=== PATIENT | female | born 1945 | race African-American/Black ===

== ENCOUNTER 2020-05-22 20:33 | Inpatient (IN) | payer MEDICARE, BC ==
[~2020-05-22] VITALS: Ht 160 cm; Wt 95.3 kg
[2020-05-22 22:17] LABS: CHLORIDE 108 mEq/L (98-107)
[2020-05-22 22:19] LABS: HEMATOCRIT. 39.1 % (36.0-48.0); HEMOGLOBIN. 12.8 g/dL (12.0-16.0); MEAN CORPUSCULAR HEMOGLOBIN 27.1 pg (28.0-32.0); MEAN CORPUSCULAR VOLUME 83.1 fL (81.0-99.0); MEAN PLATELET VOLUME 8.1 fl (7.4-10.4); PLATELET 202 x1000/uL (130-400); RED BLOOD CELL COUNT 4.71 mill/uL (4.2-5.4); RED CELL DISTRIBUTION WIDTH 17.9 % (11.6-14.6)
[2020-05-22 22:20] LABS: D-DIMER 0.95 mg/L FEU (<0.50); INR 1.2
[2020-05-22 22:36] LABS: PLATELET ESTIMATE NORMAL
[2020-05-22] MEDS ORDERED: PIPERACILLIN/TAZOBACTAM 3.375GM/50ML PREMIX IV ONE (23:30)
[2020-05-22] MEDS ORDERED: PIPERACILLIN/TAZ 3.375G PREMIX 50 ML IV NR (23:30)
[2020-05-23] MEDS ORDERED: ENOXAPARIN 100MG/ML SYR SUBCUT ONE
[2020-05-23] MEDS ORDERED: SODIUM CHLORIDE 0.9% 1,000 ML IV ONE
[2020-05-23 00:55] LABS: CLARITY URINE TURBID (CLEAR); COLOR URINE YELLOW (YELLOW); KETONES URINE NEGATIVE (NEGATIVE); LEUKOCYTE ESTERASE URINE 3+ (NEGATIVE); NITRITE URINE POSITIVE (NEGATIVE); OCCULT BLOOD URINE 3+ (NEGATIVE); PROTEIN URINE 3+ (NEGATIVE); SPECIFIC GRAVITY URINE 1.013 (1.005-1.030)
[2020-05-23] MEDS ORDERED: DILTIAZEM HCL 5MG/ML 5ML VIAL IV ONE (01:15)
[2020-05-23] MEDS: DILTIAZEM HCL 30MG TABLET PO SCH ×4 (06:50→18:00)
[2020-05-23] MEDS ORDERED: ONDANSETRON HCL 4MG/2ML INJ IV PRN (09:00)
[2020-05-23] MEDS ORDERED: ACETAMINOPHEN 325MG TABLET PO PRN (09:00)
[2020-05-23] MEDS ORDERED: ENOXAPARIN 40MG/0.4ML SYR SUBCUT SCH (09:00)
[2020-05-23] MEDS ORDERED: CLONIDINE 0.1MG TABLET PO PRN (09:00)
[2020-05-23] MEDS ORDERED: DIPHENHYDRAMINE 50MG/ML VIAL IV PRN (09:00)
[2020-05-23 09:44] LABS: PHOSPHORUS 2.6 mg/dL (2.5-4.9)
[2020-05-23] MEDS ORDERED: ENOXAPARIN 30MG/0.3ML SYR SUBCUT SCH (10:00)
[2020-05-23] MEDS ORDERED: PIPERACILLIN/TAZOBACTAM 3.375 G in DEXT 5% WATER 100 ML IV SCH (10:00)
[2020-05-23] MEDS: PIPERACILLIN/TAZ 3.375G PREMIX 50 ML IV SCH ×2 (10:48→18:30)
[2020-05-23] MEDS ORDERED: DILTIAZEM HCL 5MG/ML 5ML VIAL IV PRN (13:00)
[2020-05-23] MEDS: MIDODRINE HCL 5MG TABLET PO SCH ×2 (15:15→22:17)
[2020-05-23 15:53] LABS: BG BASE EXCESS -1.4 mmol/L (-2.0-2.0); BG CARBOXYHEMOGLOBIN 0.3 % (0.5-1.5); BG DEOXYHEMOGLOBIN 1.8 % (0.0-5.0); BG FRACTION INSPIRED OXYGEN 36; BG HCO3 ACT 18.7 mmol/L (22.0-26.0); BG METHEMOGLOBIN 0.3 % (0.0-1.5); BG OXYGEN SATURATION 98.2 % (92.0-98.5); BG OXYHEMOGLOBIN 97.6 % (94.0-97.0); BG PCO2 20.7 mmHg (35.0-45.0); BG PH 7.574 (7.350-7.450); BG SAMPLE SITE RIGHT BRACHIAL; BG TOTAL HEMOGLOBIN 12.5 g/dL (12.0-18.0); BG VENT MODE NASAL CANNULA
[2020-05-23] MEDS ORDERED: MIDODRINE HCL 5MG TABLET PO PRN (17:15)
[2020-05-23 20:36] LABS: CREATINE KINASE 42 IU/L (26-192)
[2020-05-23 20:38] LABS: CREATINE KINASE MB FRACTION < 1.0 ng/mL (0.5-3.6)
[2020-05-23 20:45] VITALS: BP 100/55
[2020-05-23 21:00] VITALS: BP 100/55
[2020-05-23] MEDS: ENOXAPARIN 100MG/ML SYR SUBCUT SCH (22:18)
[2020-05-23 23:46] LABS: CREATINE KINASE 36 IU/L (26-192)
[2020-05-23 23:47] LABS: CREATINE KINASE MB FRACTION < 1.0 ng/mL (0.5-3.6)
[2020-05-24] VITALS (7 sets, daily range): BP systolic 94–119; BP diastolic 51–76
[2020-05-24] MEDS: DILTIAZEM HCL 30MG TABLET PO SCH ×2 (00:06→05:39)
[2020-05-24] MEDS ORDERED: DEXTROSE 50% WATER 50ML SYRINGE IV PRN (02:30)
[2020-05-24] MEDS ORDERED: ATOR-2 (04:31)
[2020-05-24] MEDS ORDERED: ASPI-1158 (04:31)
[2020-05-24] MEDS ORDERED: OXYC10TA48 (04:31)
[2020-05-24] MEDS ORDERED: TELM1TAB27 (04:31)
[2020-05-24] MEDS ORDERED: APIX2.5T (04:31)
[2020-05-24] MEDS ORDERED: PREG25CA18 (04:31)
[2020-05-24] MEDS ORDERED: ERGO500013 (04:31)
[2020-05-24] MEDS ORDERED: AMIODARONE (04:31)
[2020-05-24] MEDS ORDERED: MORP15TA8 (04:31)
[2020-05-24] MEDS ORDERED: DULO30CA52 (04:31)
[2020-05-24] MEDS ORDERED: PRED10TA (04:31)
[2020-05-24] MEDS: MIDODRINE HCL 5MG TABLET PO SCH ×3 (05:39→21:17)
[2020-05-24] MEDS: PIPERACILLIN/TAZOBACTAM 2.25 G in DEXTROSE 5% WATER 50 ML IV SCH ×2 (06:08→12:21)
[2020-05-24] MEDS: BLOOD SUGAR DIAGNOSTIC STRIP TEST SCH ×4 (06:35→21:17)
[2020-05-24] MEDS: INSULIN LISPRO 100 UNITS/ML SUBCUT SCH ×4 (06:36→21:00)
[2020-05-24 08:54] LABS: HEMATOCRIT. 34.1 % (36.0-48.0); MEAN CORPUSCULAR HEMOGLOBIN 26.7 pg (28.0-32.0); MEAN CORPUSCULAR VOLUME 82.8 fL (81.0-99.0); MEAN PLATELET VOLUME 8.5 fl (7.4-10.4); PLATELET 134 x1000/uL (130-400); RED BLOOD CELL COUNT 4.12 mill/uL (4.2-5.4); RED CELL DISTRIBUTION WIDTH 18.2 % (11.6-14.6)
[2020-05-24 08:56] LABS: CHLORIDE 107 mEq/L (98-107)
[2020-05-24] MEDS: ENOXAPARIN 100MG/ML SYR SUBCUT SCH ×2 (08:56→21:19)
[2020-05-24 09:04] LABS: HDL CHOLESTEROL 16 mg/dL (40-59); LDL CHOLESTEROL 42 mg/dL (5-100)
[2020-05-24] MEDS ORDERED: MIDODRINE HCL 5MG TABLET PO NR (09:39)
[2020-05-24] MEDS: HYDROCODONE/ACETAMINOPHEN 5/325MG TABLET PO PRN (10:41)
[2020-05-24 12:38] LABS: PLATELET ESTIMATE NORMAL
[2020-05-24] MEDS ORDERED: FUROSEMIDE 20MG/2ML VIAL IVP NR (13:00)
[2020-05-24] MEDS: DILTIAZEM HCL 60MG TABLET PO SCH ×2 (13:07→18:00)
[2020-05-24] MEDS ORDERED: FUROSEMIDE 40MG/4ML VIAL IV SCH (13:15)
[2020-05-24] MEDS: CEFTRIAXONE 2 G in DEXTROSE 5% WATER 50 ML IV SCH (17:20)
[2020-05-24] MEDS: FLUTICASONE PROPIONATE 50MCG/SPRAY BOTTLE BOTHNSTRLS SCH (21:18)
[2020-05-25] VITALS (7 sets, daily range): BP systolic 107–142; BP diastolic 53–94
[2020-05-25] MEDS: HYDROCODONE/ACETAMINOPHEN 5/325MG TABLET PO PRN ×3 (00:30→18:44)
[2020-05-25] MEDS: DILTIAZEM HCL 60MG TABLET PO SCH ×4 (00:30→18:43)
[2020-05-25] MEDS: MIDODRINE HCL 5MG TABLET PO SCH ×3 (05:40→21:19)
[2020-05-25] MEDS: BLOOD SUGAR DIAGNOSTIC STRIP TEST SCH ×4 (06:25→21:17)
[2020-05-25 07:10] LABS: HEMATOCRIT. 32.6 % (36.0-48.0); HEMOGLOBIN. 10.6 g/dL (12.0-16.0); MEAN CORPUSCULAR VOLUME 82.6 fL (81.0-99.0); MEAN PLATELET VOLUME 8.7 fl (7.4-10.4); PLATELET 135 x1000/uL (130-400); RED BLOOD CELL COUNT 3.94 mill/uL (4.2-5.4); RED CELL DISTRIBUTION WIDTH 18.2 % (11.6-14.6)
[2020-05-25] MEDS: INSULIN LISPRO 100 UNITS/ML SUBCUT SCH ×4 (07:16→21:00)
[2020-05-25] MEDS: FLUTICASONE PROPIONATE 50MCG/SPRAY BOTTLE BOTHNSTRLS SCH ×2 (08:53→21:16)
[2020-05-25] MEDS: ENOXAPARIN 100MG/ML SYR SUBCUT SCH ×2 (08:54→21:17)
[2020-05-25 11:58] LABS: PLATELET ESTIMATE NORMAL
[2020-05-25] MEDS: FUROSEMIDE 40MG/4ML VIAL IVP SCH (11:59)
[2020-05-25] MEDS ORDERED: LYR25 MT (13:31)
[2020-05-25] MEDS ORDERED: POLY17PO3 MT (13:31)
[2020-05-25] MEDS ORDERED: COR25 PO (13:31)
[2020-05-25] MEDS ORDERED: ASPI-1497 PO (13:31)
[2020-05-25] MEDS ORDERED: ZOLP10TA2 MT (13:31)
[2020-05-25] MEDS ORDERED: CALC30CA PO (13:31)
[2020-05-25] MEDS ORDERED: ATOR80TA MT (13:31)
[2020-05-25] MEDS ORDERED: TELM1TAB27 PO (13:31)
[2020-05-25] MEDS: CEFTRIAXONE 2 G in DEXTROSE 5% WATER 50 ML IV SCH (18:20)
[2020-05-25] MEDS: CARVEDILOL 3.125 MG TABLET PO SCH (21:18)
[2020-05-25 23:38] LABS: *AMPHETAMINES SCREEN URINE NEGATIVE (NEGATIVE); *BARBITURATES SCREEN URINE NEGATIVE (NEGATIVE); *BENZODIAZEPINES SCREEN URINE NEGATIVE (NEGATIVE); *COCAINE SCREEN URINE NEGATIVE (NEGATIVE)
[2020-05-25 23:39] LABS: CANNABINOID URINE SCREEN NEGATIVE (NEGATIVE); METHADONE URINE SCREEN NEGATIVE (NEGATIVE); OPIATES URINE SCREEN PRESUMTIVE POSITIVE (NEGATIVE); PHENCYCLIDINE URINE SCREEN NEGATIVE (NEGATIVE)
[2020-05-26] VITALS: BP 110/57
[2020-05-26] MEDS: DILTIAZEM HCL 60MG TABLET PO SCH ×4 (02:50→17:15)
[2020-05-26] MEDS: HYDROCODONE/ACETAMINOPHEN 5/325MG TABLET PO PRN ×2 (02:51→20:53)
[2020-05-26 04:00] VITALS: BP 106/44
[2020-05-26] MEDS: MIDODRINE HCL 5MG TABLET PO SCH ×2 (06:33→14:48)
[2020-05-26] MEDS: INSULIN LISPRO 100 UNITS/ML SUBCUT SCH ×4 (06:37→20:55)
[2020-05-26] MEDS: BLOOD SUGAR DIAGNOSTIC STRIP TEST SCH ×4 (06:37→20:55)
[2020-05-26 06:57] LABS: BASOPHILS % 0.6 % (0.0-2.0); EOSINOPHILS % 0.9 % (0.0-5.0); HEMATOCRIT. 32.7 % (36.0-48.0); HEMOGLOBIN. 10.4 g/dL (12.0-16.0); LYMPHOCYTES % 10.5 % (20.0-50.0); MEAN CORPUSCULAR HEMOGLOBIN 26.7 pg (28.0-32.0); MEAN CORPUSCULAR VOLUME 83.4 fL (81.0-99.0); PLATELET 149 x1000/uL (130-400); RED BLOOD CELL COUNT 3.92 mill/uL (4.2-5.4); RED CELL DISTRIBUTION WIDTH 18.4 % (11.6-14.6)
[2020-05-26 08:00] VITALS: BP 122/74
[2020-05-26] MEDS ORDERED: AMIODARONE HCL 200 MG TABLET PO SCH (09:00)
[2020-05-26] MEDS: FUROSEMIDE 40MG/4ML VIAL IVP SCH (09:14)
[2020-05-26] MEDS: ENOXAPARIN 100MG/ML SYR SUBCUT SCH ×2 (09:15→20:04)
[2020-05-26] MEDS: CARVEDILOL 3.125 MG TABLET PO SCH ×2 (09:15→20:04)
[2020-05-26] MEDS: FLUTICASONE PROPIONATE 50MCG/SPRAY BOTTLE BOTHNSTRLS SCH ×2 (09:52→20:04)
[2020-05-26] MEDS ORDERED: SODIUM BICARBONATE 4% (2.4MEQ) 5ML VIAL IV ONE (10:22)
[2020-05-26] MEDS ORDERED: LIDOCAINE HCL 1% 20ML VIAL (Pyxis) INJ ONE (10:23)
[2020-05-26 12:00] VITALS: BP 124/65
[2020-05-26] MEDS: ASPIRIN 81MG EC TABLET PO SCH ×2 (12:34→12:42)
[2020-05-26 16:00] VITALS: BP 109/69
[2020-05-26] MEDS: CEFTRIAXONE 2 G in DEXTROSE 5% WATER 50 ML IV SCH (17:05)
[2020-05-26 20:00] VITALS: BP 126/70
[2020-05-27] VITALS: BP_SYST 115; BP_SYST 131; BP_DIAS 66; BP_DIAS 73
[2020-05-27] MEDS: MIDODRINE HCL 5MG TABLET PO SCH ×3 (00:12→13:04)
[2020-05-27] MEDS: DILTIAZEM HCL 60MG TABLET PO SCH ×4 (00:13→17:10)
[2020-05-27 04:00] VITALS: BP 129/78
[2020-05-27] MEDS: INSULIN LISPRO 100 UNITS/ML SUBCUT SCH ×3 (07:26→17:10)
[2020-05-27] MEDS: BLOOD SUGAR DIAGNOSTIC STRIP TEST SCH ×3 (07:26→17:10)
[2020-05-27 07:44] LABS: BASOPHILS % 0.9 % (0.0-2.0); EOSINOPHILS % 0.9 % (0.0-5.0); HEMATOCRIT. 35.5 % (36.0-48.0); HEMOGLOBIN. 11.3 g/dL (12.0-16.0); MEAN CORPUSCULAR HEMOGLOBIN 26.5 pg (28.0-32.0); MEAN CORPUSCULAR VOLUME 83.5 fL (81.0-99.0); MEAN PLATELET VOLUME 8.6 fl (7.4-10.4); MONOCYTES % 8.8 % (2.0-8.0); NEUTROPHILS % 72.4 % (40.0-76.0); PLATELET 163 x1000/uL (130-400); RED BLOOD CELL COUNT 4.25 mill/uL (4.2-5.4); RED CELL DISTRIBUTION WIDTH 18.7 % (11.6-14.6)
[2020-05-27 08:00] VITALS: BP 134/92
[2020-05-27] MEDS: ENOXAPARIN 100MG/ML SYR SUBCUT SCH (09:18)
[2020-05-27] MEDS: FLUTICASONE PROPIONATE 50MCG/SPRAY BOTTLE BOTHNSTRLS SCH (09:18)
[2020-05-27] MEDS: FUROSEMIDE 40MG/4ML VIAL IVP SCH (09:18)
[2020-05-27] MEDS: CARVEDILOL 3.125 MG TABLET PO SCH (09:19)
[2020-05-27] MEDS: HYDROCODONE/ACETAMINOPHEN 5/325MG TABLET PO PRN (09:28)
[2020-05-27 12:00] VITALS: BP 127/82
[2020-05-27] MEDS ORDERED: LEVO750T21 MT (13:05)
[2020-05-27] MEDS ORDERED: COR3 PO (13:05)
[2020-05-27] MEDS ORDERED: DILT240C91 MT (13:05)
[2020-05-27 15:03] LABS: BG BASE EXCESS -0.7 mmol/L (-2.0-2.0); BG CARBOXYHEMOGLOBIN 0.5 % (0.5-1.5); BG DEOXYHEMOGLOBIN 6.6 % (0.0-5.0); BG FRACTION INSPIRED OXYGEN 21; BG HCO3 ACT 21.2 mmol/L (22.0-26.0); BG METHEMOGLOBIN 0.2 % (0.0-1.5); BG OXYGEN SATURATION 93.4 % (92.0-98.5); BG OXYHEMOGLOBIN 92.7 % (94.0-97.0); BG PH 7.512 (7.350-7.450); BG PO2 63.3 mmHg (75.0-100.0); BG SAMPLE SITE RIGHT RADIAL; BG TOTAL HEMOGLOBIN 12.3 g/dL (12.0-18.0); BG VENT MODE ROOM AIR
[2020-05-27 16:17] VITALS: BP 147/82
[2020-05-27] MEDS ORDERED: FURO40TA5 MT (16:49)
[2020-05-27] MEDS: CEFTRIAXONE 2 G in DEXTROSE 5% WATER 50 ML IV SCH (17:00)
== END 2020-05-27 18:00 | disposition home or self-care (01) | DRG 871 ==
LOC: ER 20:33 → 7WST 05-23 01:01 → ENRESERV 05-23 19:12 → 8WST 05-24 03:21
PROVIDERS: ADMIT Internal Medicine; ATTEND Internal Medicine
PROC: 02HV33Z Insertion of Infusion Device into Superior Vena Cava, Percutaneous Approach (ICD-10-PCS; principal; 2020-05-26)
PROC: B5181ZA Fluoroscopy of Superior Vena Cava using Low Osmolar Contrast, Guidance (ICD-10-PCS; 2020-05-26)
PROC: B548ZZA Ultrasonography of Superior Vena Cava, Guidance (ICD-10-PCS; 2020-05-26)
DX: A41.51 Sepsis due to Escherichia coli [E. coli] (principal); J96.20 Acute and chronic respiratory failure, unspecified whether with hypoxia or hypercapnia; I50.23 Acute on chronic systolic (congestive) heart failure; N39.0 Urinary tract infection, site not specified; I48.20 Chronic atrial fibrillation, unspecified; E87.2 Acidosis; I13.0 Hypertensive heart and chronic kidney disease with heart failure and stage 1 through stage 4 chronic kidney disease, or unspecified chronic kidney disease; I31.3 Pericardial effusion (noninflammatory); I42.9 Cardiomyopathy, unspecified; I48.92 Unspecified atrial flutter; N17.9 Acute kidney failure, unspecified; E44.0 Moderate protein-calorie malnutrition; N18.9 Chronic kidney disease, unspecified; E11.22 Type 2 diabetes mellitus with diabetic chronic kidney disease; E11.65 Type 2 diabetes mellitus with hyperglycemia; E78.5 Hyperlipidemia, unspecified; I48.91 Unspecified atrial fibrillation; J31.0 Chronic rhinitis; J32.9 Chronic sinusitis, unspecified; J44.9 Chronic obstructive pulmonary disease, unspecified; E66.01 Morbid (severe) obesity due to excess calories; R65.20 Severe sepsis without septic shock; Z20.828 Contact with and (suspected) exposure to other viral communicable diseases; Z71.3 Dietary counseling and surveillance; Z79.01 Long term (current) use of anticoagulants; Z79.84 Long term (current) use of oral hypoglycemic drugs; Z68.37 Body mass index [BMI] 37.0-37.9, adult; Z85.3 Personal history of malignant neoplasm of breast; Z87.891 Personal history of nicotine dependence; Z90.710 Acquired absence of both cervix and uterus
CPT/HCPCS: 36415; 36573; 36600; 71045; 76937; 78580; 80048; 80053; 80061; 80305; 81003; 82375; 82550; 82553; 82728; 82805; 82962; 83036; 83605; 83615; 83735; 83880; 84100; 84145; 84443; 84484; 85025; 85379; 86141; 87077; 87186; 87804; 93005; 93306; 93970; 96365; 99285; C1725; J0696; J1650; J1940; J2405; J2543; J3490; J7030; J7060; U0003-CS